=== PATIENT | male | born 1985 | race African-American/Black ===

== ENCOUNTER 2018-06-27 01:00 | Emergency (ER) | payer OTHER ==
[~2018-06-27] VITALS: Ht 193 cm; Wt 99.8 kg
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
--- NOTE | 2018-06-27 01:39 | NUR ---
ER MD AT BEDSIDE TO EVAL PT WITH ORDERS RECEIVED.
--- NOTE | 2018-06-27 01:53 | NUR ---
LINE ORDERING CLINICIAN AT BEDSIDE TO WALE CHOI.
[2018-06-27 02:16] LABS: CALCIUM, SERUM 8.7 mg/dL (8.5-10.1); CARBON DIOXIDE 28 mmol/L (21-32); CHLORIDE 106 mmol/L (98-107); CREATININE 1.2 mg/dL (0.6-1.3); GLUCOSE 101 mg/dL (74-106); SODIUM SERUM 141 mmol/L (136-145); UREA NITROGEN, BLOOD 17 mg/dL (7-18)
[2018-06-27 02:22] LABS: ALANINE AMINOTRANSFERASE 36 U/L (12-78); ALBUMIN 4.2 g/dL (3.4-5.0); ALKALINE PHOSPHATASE 49 U/L (46-116); ASPARTATE AMINOTRANSFERASE 25 U/L (15-37); BILIRUBIN,DIRECT 0.1 mg/dL (0.0-0.2); BILIRUBIN,TOTAL 0.4 mg/dL (0.2-1.0); TOTAL PROTEIN, SERUM 3.8 g/dL (6.4-8.2)
[2018-06-27 02:24] LABS: ACETAMINOPHEN 0 ug/ml (10-30); ALCOHOL, BLOOD < 3 mg/dL (0-0); SALICYLATE 1.9 mg/dL (2.8-20.0)
[2018-06-27 02:25] LABS: BASOPHILS % (AUTO) 0.4 % (0.0-2.0); EOSINOPHILS % (AUTO) 0.5 % (0.0-6.0); HEMATOCRIT 45 % (39-51); HEMOGLOBIN 15.4 g/dL (13.5-17.5); LYMPHOCYTES # (AUTO) 1.5 /CMM (0.8-4.8); LYMPHOCYTES % (AUTO) 31.5 % (20.0-44.0); MEAN CORPUSCULAR HGB CONC 34 g/dl (31.0-36.0); MEAN CORPUSCULAR VOLUME 90 fL (80-96); MONOCYTES # (AUTO) 0.4 /CMM (0.1-1.30); MONOCYTES % (AUTO) 8.1 % (2.0-12.0); NEUTROPHILS # (AUTO) 2.8 /CMM (1.8-8.9); NEUTROPHILS % (AUTO) 59.5 % (43.0-81.0); PLATELET COUNT (AUTO) 141 /CMM (150-450); RED BLOOD CELL COUNT(AUTO) 5.02 MIL/uL (4.5-6.0); WHITE BLOOD COUNT (AUTO) 4.7 K/uL (4.3-11.0)
[2018-06-27] MEDS ORDERED: OLANZAPINE 5 MG TABLET PO ONE (03:00)
[2018-06-27] MEDS ORDERED: OLANZAPINE 5 MG TABLET ONE (04:42)
--- NOTE | 2018-06-27 05:11 | NUR ---
PT ASLEEP, EASILY AROUSABLE, NO ACUTE DISTRESS NOTED, ERSP EVEN AND UNLABORED. CALL LIGHT WITHIN ERACH. WILL CONTINUE TO MONIROT PT CLOSELY.
--- NOTE | 2018-06-27 06:11 | NUR ---
PT ASLEEP, EASILY AROUSABLE, NO ACUTE DISTRESS NOTED, ERSP EVEN AND UNLABORED. CALL LIGHT WITHIN ERACH. WILL CONTINUE TO MONIROT PT CLOSELY.
--- NOTE | 2018-06-27 07:30 | NUR ---
PT ASLEEP IN BED, TUCKED IN BLANKET, EASILY AROUSABLE BY VOICE. WILL CONTINUE TO MONITOR.
--- NOTE | 2018-06-27 09:28 | NUR ---
PT IN BED, TUCKED IN BLANKET, HOOKED TO MONITOR. EASILY AROUSABLE BY VOICE. WILL CONTINUE TO MONITOR
--- NOTE | 2018-06-27 12:21 | NUR ---
PT IN BED, TUCKED IN BLANKET, HOOKED TO MONITOR. EASILY AROUSABLE BY VOICE. WILL CONTINUE TO MONITOR. KEPT SAFE , WARM AND COMFORTABLE.
--- NOTE | 2018-06-27 15:30 | NUR ---
Patient discharged to [facility] in stable condition. Written and verbal after care instructions given. Patient verbalizes understanding of instruction. PT WILL BE BROUGHT TO [facility]
[2018-06-27 15:46] VITALS: BP 126/68
== END 2018-06-27 15:30 ==
LOC: ER 01:00
DX: F32.9 Major depressive disorder, single episode, unspecified (principal); R45.851 Suicidal ideations; F20.9 Schizophrenia, unspecified; F12.10 Cannabis abuse, uncomplicated; Z59.0 Homelessness
CPT/HCPCS: 36415; 80048; 80076; 80305; 80307; 80329; 85025; 99285; G0480

== ENCOUNTER 2021-04-29 23:40 | Emergency (ER) | payer OTHER ==
[~2021-04-29] VITALS: Ht 190.5 cm; Wt 103.0 kg
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
--- NOTE | 2021-04-30 03:11 | NUR ---
URINE COLLECTED AND SENT TO LAB
--- NOTE | 2021-04-30 03:56 | NUR ---
LAB AT BEDSIDE
[2021-04-30 04:17] LABS: BASOPHILS % (AUTO) 0.3 % (0.0-2.0); HEMATOCRIT 42 % (39-51); HEMOGLOBIN 13.8 g/dL (13.5-17.5); LYMPHOCYTES # (AUTO) 1.3 K/uL (0.8-4.8); LYMPHOCYTES % (AUTO) 30.1 % (20.0-44.0); MEAN CORPUSCULAR HGB CONC 33 g/dl (31.0-36.0); MEAN CORPUSCULAR VOLUME 87 fL (80-96); MONOCYTES # (AUTO) 0.4 K/uL (0.1-1.30); MONOCYTES % (AUTO) 8.5 % (2.0-12.0); NEUTROPHILS # (AUTO) 2.5 K/uL (1.8-8.9); NEUTROPHILS % (AUTO) 60.1 % (43.0-81.0); PLATELET COUNT (AUTO) 144 K/uL (150-450); RED BLOOD CELL COUNT(AUTO) 4.78 MIL/uL (4.5-6.0); WHITE BLOOD COUNT (AUTO) 4.2 K/uL (4.3-11.0)
[2021-04-30 04:32] LABS: BILIRUBIN,URINE NEGATIVE (NEGATIVE); COLOR,URINE YELLOW (YELLOW); LEUKOCYTE ESTERASE ,URINE NEGATIVE (NEGATIVE); NITRITE, URINE NEGATIVE (NEGATIVE); PH,URINE 5.5 (5.0-8.0); PROTEIN,URINE NEGATIVE (NEGATIVE); UGLUCOSE NEGATIVE (NEGATIVE)
[2021-04-30 04:45] LABS: CALCIUM, SERUM 8.4 mg/dL (8.5-10.1); CARBON DIOXIDE 29 mmol/L (21-32); CHLORIDE 103 mmol/L (98-107); CREATININE 0.9 mg/dL (0.6-1.3); GLUCOSE 107 mg/dL (74-106); POTASSIUM 3.8 mmol/L (3.5-5.1); SODIUM SERUM 136 mmol/L (136-145); UREA NITROGEN, BLOOD 14 mg/dL (7-18)
[2021-04-30 05:01] LABS: BACTERIA,URINE None seen /HPF (None Seen); RBC,URINE 0-2 /HPF (0-2); SQUAMOUS EPITHELIAL CELL,UR Few /HPF (None Seen); WBC,URINE 0-2 /HPF (0-3)
[2021-04-30 05:06] LABS: ALANINE AMINOTRANSFERASE 45 U/L (12-78); ALBUMIN 3.3 g/dL (3.4-5.0); ALKALINE PHOSPHATASE 53 U/L (46-116); ASPARTATE AMINOTRANSFERASE 36 U/L (15-37); BILIRUBIN,DIRECT 0.2 mg/dL (0.0-0.2); BILIRUBIN,TOTAL 0.6 mg/dL (0.2-1.0); TOTAL PROTEIN, SERUM 5.8 g/dL (6.4-8.2)
[2021-04-30 05:09] LABS: ACETAMINOPHEN < 2 ug/ml (10-30)
[2021-04-30 05:12] LABS: ALCOHOL, BLOOD < 3 mg/dL (0-0)
--- NOTE | 2021-04-30 06:16 | NUR ---
FACESHEET AND CLINICALS FAXED TO [facility].
--- NOTE | 2021-04-30 08:24 | NUR ---
BREAKFAST PROVIDED, TOLERATED WELL
--- NOTE | 2021-04-30 12:01 | NUR ---
LUNCH PROVIDED, TOLERATED WELL
--- NOTE | 2021-04-30 12:11 | NUR ---
CALLED [facility] INTAKE STILL AWAITING FEEDBACK PER
--- NOTE | 2021-04-30 15:37 | NUR ---
STILL AWAITING FEEDBACK FROM BILLET HEATER OPERATOR PER
--- NOTE | 2021-04-30 16:33 | NUR ---
RICCO KERR, ACCEPTED AT [facility] UNDER [address] GOMEZ. CALL [phone] FOR REPORT AFTER 8PM.
--- NOTE | 2021-04-30 16:52 | NUR ---
CALLED [facility] FOR TRANSPORT ASKED FOR ETA OF 2030 PER [facility] REQUEST.
--- NOTE | 2021-04-30 20:21 | NUR ---
REPORT GIVEN TO UGO LOVELACE FOR CONTINUATION OF CARE.
--- NOTE | 2021-04-30 20:26 | NUR ---
PT PICKED UP BY [facility]. PT STABLE AT TIME OF TRANSFER.
--- NOTE | 2021-04-30 21:01 | NUR ---
PT DC TO [facility] VIA [facility]. VSS. DR. RAMOS AWARE.
[2021-04-30 21:03] VITALS: BP 139/82
== END 2021-04-30 21:04 ==
LOC: ER 04-30 00:02
DX: R45.851 Suicidal ideations (principal); F15.10 Other stimulant abuse, uncomplicated; F16.10 Hallucinogen abuse, uncomplicated; Z59.01 Sheltered homelessness; Z20.822 Contact with and (suspected) exposure to COVID-19; R03.0 Elevated blood-pressure reading, without diagnosis of hypertension; F20.9 Schizophrenia, unspecified; F17.200 Nicotine dependence, unspecified, uncomplicated
CPT/HCPCS: 36415; 80048; 80076; 80143; 80307; 80320; 81001; 85025; 87426; 99285; C9803; G0480

== ENCOUNTER 2021-05-27 07:39 | Emergency (ER) | payer OTHER ==
--- NOTE | 2021-05-27 07:43 | NUR ---
Called. NO Response
--- NOTE | 2021-05-27 07:55 | NUR ---
Called. No Response- Eloped
== END 2021-05-27 07:56 | disposition home or self-care (01) ==
LOC: ER 07:40
DX: Z53.21 Procedure and treatment not carried out due to patient leaving prior to being seen by health care provider (principal)

== ENCOUNTER 2021-05-27 09:50 | Emergency (ER) | payer OTHER ==
[~2021-05-27] VITALS: Ht 180.3 cm; Wt 79.4 kg
--- NOTE | 2021-05-27 09:50 | NUR ---
PT BIB SELF C/O SI "I WANT TO JUMP IN FRONT OF THE BUS" PT REQUESTING VOLUNTARY PSYCH ADMISSION TO [facility]. PT IS AAOX4, NOT IN RESPIRATORY DISTRESS, V/S STABLE, KEPT RESTED AND COMFORTABLE. WILL CONTINUE TO MONITOR.
--- NOTE | 2021-05-27 10:23 | NUR ---
URINE SPECIMEN COLLECTED AND SENT TO LAB.
--- NOTE | 2021-05-27 10:24 | NUR ---
COVID SPECIMEN COLLECTED AND SENT TO LAB.
[2021-05-27 11:05] LABS: BILIRUBIN,URINE NEGATIVE (NEGATIVE); COLOR,URINE YELLOW (YELLOW); LEUKOCYTE ESTERASE ,URINE NEGATIVE (NEGATIVE); NITRITE, URINE NEGATIVE (NEGATIVE); PROTEIN,URINE NEGATIVE (NEGATIVE); UGLUCOSE NEGATIVE (NEGATIVE)
[2021-05-27 11:39] LABS: BACTERIA,URINE None seen /HPF (None Seen); RBC,URINE 0-2 /HPF (0-2); SQUAMOUS EPITHELIAL CELL,UR Rare /HPF (None Seen)
--- NOTE | 2021-05-27 12:38 | NUR ---
LUNCH TRAY PROVIDED. TOLERATED WELL
[2021-05-27 13:04] LABS: BASOPHILS % (AUTO) 0.2 % (0.0-2.0); EOSINOPHILS % (AUTO) 1.3 % (0.0-6.0); HEMATOCRIT 35 % (39-51); HEMOGLOBIN 11.6 g/dL (13.5-17.5); LYMPHOCYTES % (AUTO) 25.1 % (20.0-44.0); MEAN CORPUSCULAR HGB CONC 33 g/dl (31.0-36.0); MEAN CORPUSCULAR VOLUME 87 fL (80-96); MONOCYTES # (AUTO) 0.5 K/uL (0.1-1.30); MONOCYTES % (AUTO) 12.7 % (2.0-12.0); NEUTROPHILS # (AUTO) 2.4 K/uL (1.8-8.9); NEUTROPHILS % (AUTO) 60.7 % (43.0-81.0); PLATELET COUNT (AUTO) 128 K/uL (150-450); RED BLOOD CELL COUNT(AUTO) 4.02 MIL/uL (4.5-6.0)
[2021-05-27 13:41] LABS: CALCIUM, SERUM 8.1 mg/dL (8.5-10.1); CARBON DIOXIDE 29 mmol/L (21-32); CHLORIDE 107 mmol/L (98-107); CREATININE 0.8 mg/dL (0.6-1.3); GLUCOSE 99 mg/dL (74-106); POTASSIUM 4.1 mmol/L (3.5-5.1); SODIUM SERUM 141 mmol/L (136-145); UREA NITROGEN, BLOOD 13 mg/dL (7-18)
[2021-05-27 13:47] LABS: ACETAMINOPHEN 0 ug/ml (10-30); ALANINE AMINOTRANSFERASE 94 U/L (12-78); ALBUMIN 3.2 g/dL (3.4-5.0); ALCOHOL, BLOOD < 3 mg/dL (0-0); ALKALINE PHOSPHATASE 63 U/L (46-116); ASPARTATE AMINOTRANSFERASE 59 U/L (15-37); BILIRUBIN,DIRECT 0.1 mg/dL (0.0-0.2); BILIRUBIN,TOTAL 0.3 mg/dL (0.2-1.0); TOTAL PROTEIN, SERUM 5.8 g/dL (6.4-8.2)
--- NOTE | 2021-05-27 15:40 | NUR ---
FAXED CLINICALS TO [facility] INTAKE.
--- NOTE | 2021-05-27 17:25 | NUR ---
ACCEPTED AT [facility] UNDER ERIN/SHRUTHI REPORT G[facility] WILL ARRANGE TRANSPORT.
--- NOTE | 2021-05-27 17:37 | NUR ---
[facility] CALLED FOR TRANSPORT WITH ERA OF 1800
[2021-05-27 18:04] VITALS: BP 134/81
--- NOTE | 2021-05-27 18:04 | NUR ---
EMT AT BEDSIDE FOR PT TRANSFER TO [facility].
== END 2021-05-27 18:06 ==
LOC: ER 09:51
DX: R45.851 Suicidal ideations (principal); F20.9 Schizophrenia, unspecified; Z59.00 Homelessness unspecified; D64.9 Anemia, unspecified; D69.6 Thrombocytopenia, unspecified; R74.01 Elevation of levels of liver transaminase levels; Z20.822 Contact with and (suspected) exposure to COVID-19
CPT/HCPCS: 36415; 80048; 80076; 80143; 80307; 80320; 81001; 85025; 87426; 99285; C9803; G0480

== ENCOUNTER 2021-07-16 08:13 | Emergency (ER) | payer OTHER ==
[~2021-07-16] VITALS: Ht 180.3 cm; Wt 81.6 kg
--- NOTE | 2021-07-16 08:22 | NUR ---
CALLED TO TRIAGE PT STATED HE WANTS TO SMOKE FIRST BEFORE TRIAGE.
--- NOTE | 2021-07-16 08:25 | NUR ---
PT IS AGGRESSIVE AND THREATENING STAFF.
--- NOTE | 2021-07-16 08:25 | NUR ---
PER ER ADMITTING PT IS SAYING HE WILL HURT THE STAFF.
--- NOTE | 2021-07-16 08:25 | NUR ---
CALLED [facility] [phone] [employer] SUPERVIS[employer] [phone] WILL DISPATCH A UNIT
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
--- NOTE | 2021-07-16 09:18 | NUR ---
[employer] AT BEDSIDE.
--- NOTE | 2021-07-16 09:49 | NUR ---
PER DR.BOLDUC GALDAMEZ WILL WILL TAKE PT TO [facility].
== END 2021-07-16 09:59 ==
LOC: ER 08:15
DX: R45.851 Suicidal ideations (principal); F20.9 Schizophrenia, unspecified; Z59.00 Homelessness unspecified

== ENCOUNTER 2024-01-06 02:03 | Emergency (ER) | payer MEDICAID, OTHER ==
[~2024-01-06] VITALS: Ht 188 cm; Wt 103.4 kg
[2024-01-06 03:10] VITALS: BP 154/99; TEMP 98.1; O2SAT 100
[2024-01-06] MEDS ORDERED: CYCLOBENZAPRINE 10 MG TABLET ONE (03:28)
[2024-01-06] MEDS ORDERED: CYCL5TAB PO (03:29)
[2024-01-06] MEDS ORDERED: IBUPROFEN 400 MG TABLET ONE (03:29)
[2024-01-06] MEDS: IBUPROFEN 400 MG TABLET PO ONE (03:31)
[2024-01-06] MEDS: CYCLOBENZAPRINE 10 MG TABLET PO ONE (03:31)
== END 2024-01-06 04:05 | disposition home or self-care (01) ==
LOC: ER 02:05
DX: M54.9 Dorsalgia, unspecified (principal); M79.641 Pain in right hand; M79.642 Pain in left hand; M79.672 Pain in left foot; M79.671 Pain in right foot; F20.9 Schizophrenia, unspecified; I10 Essential (primary) hypertension; F17.200 Nicotine dependence, unspecified, uncomplicated; Z59.00 Homelessness unspecified; Z88.0 Allergy status to penicillin; V89.2XXA Person injured in unspecified motor-vehicle accident, traffic, initial encounter; Y93.89 Activity, other specified; Y92.89 Other specified places as the place of occurrence of the external cause; Y99.8 Other external cause status

== ENCOUNTER 2024-06-02 11:46 | Emergency (ER) | payer MEDICAID, OTHER ==
[~2024-06-02] VITALS: Ht 182.9 cm; Wt 95.3 kg
[~2024-06-02 11:46] MED LIST: CYCL5TAB PO
[2024-06-02 12:19] LABS: BASOPHILS % (AUTO) 0.5 % (0.0-2.0); EOSINOPHILS % (AUTO) 0.7 % (0.0-6.0); HEMATOCRIT 42 % (39-51); HEMOGLOBIN 14.3 g/dL (13.5-17.5); LYMPHOCYTES # (AUTO) 1.3 K/uL (0.8-4.8); MEAN CORPUSCULAR HEMOGLOBIN 31 PG (26.0-33.0); MEAN CORPUSCULAR HGB CONC 34 g/dl (31.0-36.0); MEAN CORPUSCULAR VOLUME 89 fL (80-96); MONOCYTES # (AUTO) 0.3 K/uL (0.1-1.30); MONOCYTES % (AUTO) 5.5 % (2.0-12.0); NEUTROPHILS # (AUTO) 4.6 K/uL (1.8-8.9); NEUTROPHILS % (AUTO) 72.3 % (43.0-81.0); PLATELET COUNT (AUTO) 192 K/uL (150-450); RED BLOOD CELL COUNT(AUTO) 4.69 MIL/uL (4.5-6.0); RED CELL DISTRIBUTION WIDTH 14.5 % (11.5-15.0); WHITE BLOOD COUNT (AUTO) 6.3 K/uL (4.3-11.0)
[2024-06-02 12:34] LABS: CALCIUM, SERUM 9.5 mg/dL (8.5-10.1); CARBON DIOXIDE 30 mmol/L (21-32); CHLORIDE 102 mmol/L (98-107); CREATININE 1.1 mg/dL (0.6-1.3); GLUCOSE 102 mg/dL (74-106); POTASSIUM 4.1 mmol/L (3.5-5.1); SODIUM SERUM 139 mmol/L (136-145); UREA NITROGEN, BLOOD 22 mg/dL (7-18)
[2024-06-02 12:41] LABS: ALANINE AMINOTRANSFERASE 34 U/L (12-78); ALBUMIN 4.4 g/dL (3.4-5.0); ALKALINE PHOSPHATASE 67 U/L (46-116); ASPARTATE AMINOTRANSFERASE 42 U/L (15-37); BILIRUBIN,DIRECT 0.2 mg/dL (0.0-0.2); BILIRUBIN,TOTAL 0.7 mg/dL (0.2-1.0); TOTAL PROTEIN, SERUM 7.5 g/dL (6.4-8.2)
[2024-06-02 12:42] LABS: ACETAMINOPHEN <10 ug/ml (10-30); ALCOHOL, BLOOD < 3 mg/dL (0-10); SALICYLATE 1.9 mg/dL (2.8-20.0)
[2024-06-02 12:59] LABS: APPEARANCE,URINE CLEAR (CLEAR); BILIRUBIN,URINE NEGATIVE (NEGATIVE); BLOOD, URINE NEGATIVE Ery/uL (NEGATIVE); COLOR,URINE YELLOW (YELLOW); KETONES,URINE NEGATIVE (NEGATIVE); LEUKOCYTE ESTERASE ,URINE NEGATIVE (NEGATIVE); NITRITE, URINE NEGATIVE (NEGATIVE); PROTEIN,URINE NEGATIVE (NEGATIVE); UGLUCOSE NEGATIVE (NEGATIVE); UROBILINOGEN,URINE 0.2 EU/dL (0.2)
[2024-06-02 13:12] LABS: BARBITURATE, URINE NEGATIVE (NEGATIVE); BENZODIAZEPINE, URINE NEGATIVE (NEGATIVE); COCCAINE, URINE NEGATIVE (NEGATIVE); OPIATE, URINE NEGATIVE (NEGATIVE)
[2024-06-02 13:13] LABS: AMPHETAMINE, URINE POSITIVE (NEGATIVE); CANNABINOID, URINE POSITIVE (NEGATIVE); PHENCYCLIDINE SCREEN,URINE POSITIVE (NEGATIVE)
[2024-06-02 14:00] VITALS: BP 138/77; TEMP 98.6; O2SAT 99
[2024-06-02] MEDS ORDERED: OLANZAPINE 5 MG TABLET ONE (14:32)
[2024-06-02] MEDS: OLANZAPINE 5 MG TABLET PO ONE (14:36)
== END 2024-06-02 16:11 | disposition left against medical advice (07) ==
LOC: ER 11:50
DX: Z00.8 Encounter for other general examination (principal); F17.200 Nicotine dependence, unspecified, uncomplicated; F20.9 Schizophrenia, unspecified; I10 Essential (primary) hypertension; Z59.00 Homelessness unspecified; Z88.0 Allergy status to penicillin; Z20.822 Contact with and (suspected) exposure to COVID-19
CPT/HCPCS: 36415; 80048-TC; 80076-TC; 85025-TC; G0480

== ENCOUNTER 2024-08-17 00:03 | Emergency (ER) | payer MEDICAID, OTHER ==
[~2024-08-17] VITALS: Ht 190.5 cm; Wt 104.3 kg
[2024-08-17 00:14] VITALS: BP 136/83; TEMP 98.6; O2SAT 98
[2024-08-17 00:39] LABS: BASOPHILS % (AUTO) 0.6 % (0.0-2.0); EOSINOPHILS % (AUTO) 1.2 % (0.0-6.0); HEMATOCRIT 40 % (39-51); HEMOGLOBIN 13.2 g/dL (13.5-17.5); LYMPHOCYTES % (AUTO) 48.4 % (20.0-44.0); MEAN CORPUSCULAR HEMOGLOBIN 30 PG (26.0-33.0); MEAN CORPUSCULAR HGB CONC 33 g/dl (31.0-36.0); MEAN CORPUSCULAR VOLUME 91 fL (80-96); MONOCYTES # (AUTO) 0.5 K/uL (0.1-1.30); MONOCYTES % (AUTO) 11.3 % (2.0-12.0); NEUTROPHILS # (AUTO) 1.6 K/uL (1.8-8.9); NEUTROPHILS % (AUTO) 38.5 % (43.0-81.0); PLATELET COUNT (AUTO) 206 K/uL (150-450); RED BLOOD CELL COUNT(AUTO) 4.42 MIL/uL (4.5-6.0); RED CELL DISTRIBUTION WIDTH 14.6 % (11.5-15.0); WHITE BLOOD COUNT (AUTO) 4.1 K/uL (4.3-11.0)
[2024-08-17 00:48] LABS: CALCIUM, SERUM 8.8 mg/dL (8.5-10.1); CARBON DIOXIDE 29 mmol/L (21-32); CHLORIDE 104 mmol/L (98-107); GLUCOSE 62 mg/dL (74-106); POTASSIUM 3.6 mmol/L (3.5-5.1); SODIUM SERUM 139 mmol/L (136-145); UREA NITROGEN, BLOOD 15 mg/dL (7-18)
[2024-08-17 00:53] LABS: APPEARANCE,URINE CLEAR (CLEAR); BILIRUBIN,URINE NEGATIVE (NEGATIVE); BLOOD, URINE NEGATIVE Ery/uL (NEGATIVE); COLOR,URINE YELLOW (YELLOW); KETONES,URINE NEGATIVE (NEGATIVE); LEUKOCYTE ESTERASE ,URINE NEGATIVE (NEGATIVE); NITRITE, URINE NEGATIVE (NEGATIVE); PROTEIN,URINE TRACE mg/dl (NEGATIVE); UGLUCOSE NEGATIVE (NEGATIVE)
[2024-08-17 00:53] LABS: ACETAMINOPHEN <10 ug/ml (10-30); ALANINE AMINOTRANSFERASE 31 U/L (12-78); ALBUMIN 4.2 g/dL (3.4-5.0); ALCOHOL, BLOOD < 3 mg/dL (0-10); ALKALINE PHOSPHATASE 63 U/L (46-116); ASPARTATE AMINOTRANSFERASE 37 U/L (15-37); BILIRUBIN,DIRECT 0.2 mg/dL (0.0-0.2); BILIRUBIN,TOTAL 0.9 mg/dL (0.2-1.0); TOTAL PROTEIN, SERUM 7.4 g/dL (6.4-8.2)
[2024-08-17 01:07] LABS: ADD URINE CULTURE YES; BACTERIA,URINE Moderate /HPF (None Seen); RBC,URINE 0-2 /HPF (0-2); SQUAMOUS EPITHELIAL CELL,UR Moderate /HPF (None Seen)
[2024-08-17 01:08] LABS: SPERM,URINE Moderate /HPF (None Seen)
[2024-08-17 01:11] LABS: BARBITURATE, URINE NEGATIVE (NEGATIVE); BENZODIAZEPINE, URINE NEGATIVE (NEGATIVE); COCCAINE, URINE NEGATIVE (NEGATIVE); OPIATE, URINE NEGATIVE (NEGATIVE)
[2024-08-17 01:12] LABS: AMPHETAMINE, URINE POSITIVE (NEGATIVE); CANNABINOID, URINE POSITIVE (NEGATIVE); PHENCYCLIDINE SCREEN,URINE POSITIVE (NEGATIVE)
== END 2024-08-17 02:45 ==
LOC: ER 00:05
DX: R45.851 Suicidal ideations (principal); F32.A Depression, unspecified; F20.9 Schizophrenia, unspecified; I10 Essential (primary) hypertension; F17.200 Nicotine dependence, unspecified, uncomplicated; Z59.00 Homelessness unspecified; Z88.0 Allergy status to penicillin; Z79.899 Other long term (current) drug therapy; Z20.822 Contact with and (suspected) exposure to COVID-19
CPT/HCPCS: 36415; 80048-TC; 80076-TC; 81001; 82962-TC; 85025-TC; 87086-TC; G0480